=== PATIENT | male | born 1975 | race Caucasian/White ===

== ENCOUNTER 2024-07-01 23:08 | Emergency (ER) | payer MEDICAID, SELFPAY ==
--- NOTE | ~2024-07-01 | XR_ITS ---
EXAMINATION: XR CHEST CLINICAL INFORMATION: Cough and shortness of breath COMPARISON: None available. TECHNIQUE: 2 views of the chest were obtained. FINDINGS: The heart and pulmonary vessels appear normal. The lungs are well inflated. No pleural effusions are present. There may be some mild atelectasis at the lung bases but no gross consolidation is seen. No lung masses. XR/XR chest 2V IMPRESSION: No acute intrathoracic disease. Electronically signed by: Da Ramírez MD 07/02/2024 12:59 AM EDT
[2024-07-01 23:12] VITALS: BP 120/75; BP 144/91; PULSE 106; PULSE 89; RESP 16; TEMP 37.2; O2SAT 99; BMI 25.7
--- NOTE | 2024-07-01 23:49 | ED_ITS ---
HPI - General Adult General Chief complaint: Dyspnea Stated complaint: asthma exacerbation Time Seen by Provider: 07/01/24 23:23 Source: patient and EMS Mode of arrival: EMS Limitations: no limitations History of Present Illness HPI narrative: Patient is a 49-year-old male with reported past medical history of schizoaffective disorder and asthma. He states that for the past few weeks he has been having a productive cough with yellow phlegm, no fevers or chills, reports that he was experiencing shortness of breath throughout today. Most notably after he was walking [place] He is concerned he is having an asthma exacerbation. Unfortunately he does not have an albuterol inhaler, he has not been taking any maintenance asthma medications. Continues to smoke cigarettes and has no interest in cessation at this time. He reports that he previously resided in [place], he has a bad family dynamics, and states he is ?too well known to the [facility]?, so he moved to the [facility] and hopes to start fresh. Reports approximately 1 month ago he was at a and respite home, was discharged for ?being gone too long when I went to get cigarettes?. He has not taken his medications since then, can not recall the name of the medications he was previously taking. He denies suicidal or homicidal ideations. He denies recreational drug or alcohol usage. He is currently homeless. Related Data Home Medications ?Medication ?Instructions ?Recorded ?Confirmed albuterol sulfate 90 mcg/actuation 1 puff inhalation QID PRN wheezing 07/01/24 07/01/24 aerosol inhaler (Ventolin HFA) fluticasone furoate 100 1 ea inhalation DAILY 07/01/24 07/01/24 mcg-vilanterol 25 mcg/dose inhalation powder (Breo Ellipta) Allergies Allergy/AdvReac Type Severity Reaction Status Date / Time risperidone Allergy Anaphylaxis Verified 07/01/24 23:24 Review of Systems 2 Review of Systems: Yes all other systems are reviewed and are negative PMFSH Past Medical History Attestation statement: The following information was validated with the patient. Source: old records reviewed Social History Social History Smoked in Last 30 Days: Yes Use of substances other than those prescribed or required for medical reasons: No Advance Directives: No Advance Directives Information Provided: Yes Do you have a plan to hurt others: No Plan Physical Exam ED Vital Signs: Vital Signs - 24 hr 07/01/24 23:12 07/02/24 00:00 Temperature 99.0 F 99.0 F Pulse Rate 89 78 Respiratory Rate 16 16 Blood Pressure 120/75 118/78 Pulse Oximetry 99 99 BMI result Body Mass Index 25.7 Appearance: Alert.?Oriented to person, place and time. No acute distress.?Normal affect. Eyes: Pupils equal, round and reactive to light.? ENT: Pharynx normal.?? Neck: Normal inspection.? Neck supple.?? CVS: Heart sounds normal. Normal heart rate and rhythm.? Pulses normal.?? Respiratory: No respiratory distress.? Lung sounds mild inspiratory wheezing, audible cough Abdomen: Soft and non-tender. Normoactive bowel sounds. Skin: Skin warm and dry.? Normal skin color.? Extremities: No lower extremity edema.? Neuro: Moves all extremities spontaneously. Sensation intact bilaterally. CN II- XII intact. No focal neuro deficits. Ambulates with normal steady gait. Medications Administered Generic Name Dose Route Start Last Admin Trade Name Freq PRN Reason Stop Dose Admin Guaifenesin/Codeine Phosphate 10 ml 07/02/24 00:01 07/02/24 00:27 Guaifen/Codeine Sf 200/20/10ml 10 Ml Liquid PO 10 ml Q4H PRN Administration Cough Discontinued Medications Generic Name Dose Route Start Last Admin Trade Name Freq PRN Reason Stop Dose Admin Albuterol Sulfate 2 puff 07/01/24 23:47 07/02/24 00:13 Albuterol Sulfate 90 Mcg 8 Gm Inhaler INHALE 07/01/24 23:48 2 puff ONCE ONE Administration Prednisone 40 mg 07/01/24 23:47 07/02/24 00:13 Prednisone 20 Mg Tablet PO 07/01/24 23:48 40 mg ONCE ONE Administration Medical Decision Making Medical Decision Making [facility] Narrative: Patient is a 49-year-old male with past medical history of asthma schizoaffective disorder presenting to emergency department concern for mild asthma exacerbation by his account with productive cough, shortness of breath. No acute respiratory distress no hypoxia, given duration of symptoms to obtain CXR to exclude pneumonia, in addition to viral serologies, he is afebrile without tachycardic, do not suspect sepsis at this time. He is requesting stabilization with medications for schizoaffective disorder but he has been off of for a few weeks, does not recall which medications. He is currently without suicidal or homicidal ideations. He is calm and cooperative. Will administer inhaler in the emergency department in addition to prednisone. Will refer to care team for further evaluation and safe disposition planning. Differential Diagnosis Differential Diagnoses: The differential diagnosis associated with the presentation includes (See narrative above) Admission/Observation Consideration of admission/observation: Escalation of care including admission/observation considered Patient is being observed in the Emergency Department for depression and anxiety. Observation time was started at 00:01 on 07/02/2024.?The patient is currently stable and non-toxic appearing. Observation is being initiated in the Emergency Department to allow time to help differentiate if the patient's depression and anxiety is due to Substance Induced Mood Disorder and Anxiety versus Major Depressive Disorder, Bipolar [place], Bipolar Depression, and Schizophrenia. The patient will receive frequent psychiatric assessments from the provider as well as from nursing staff. The patient will also be monitored for the need of PRN agitation medications such as Haldol, Ativan, and Benadryl. Consult Healthcare Provider Management of the patient was discussed with: Behavioral Health Provider Lab Data [facility] Lab Attestation statement: I reviewed the patient's lab results. CBC revealing mild leukocytosis 12.6 no anemia. No electrolyte derangement. No [place]. Alcohol level nondetectable. Viral serologies are negative. 07/02/24 00:12 07/02/24 00:12 Labs: Lab Results 07/02/24 Range/Units 00:12 WBC 12.6 H (4.8-10.8) X10*3/uL RBC 5.86 H (4.60-5.80) X10*6/uL Hgb 17.4 (14.0-18.0) g/dl Hct 49.6 (42.0-52.0) % MCV 84.6 (80.0-98.0) fL MCH 29.7 (27.0-33.0) pg MCHC 35.1 (31.0-36.0) g/dl RDW 12.2 (11.0-16.0) % Plt Count 285 (160-400) X10*3/uL MPV 9.9 (9.4-12.4) fL Immature Gran % (Auto) 0.3 (0.0-0.4) % Neut % (Auto) 70.1 (45-73) % Lymph % (Auto) 21.0 (20-40) % Cross % (Auto) 7.8 (2-11) % Eos % (Auto) 0.5 (0-4) % Baso % (Auto) 0.3 (0-2) % Lymph # (Auto) 2.7 (1.2-4.9) X10*3/uL Cross # (Auto) 1.0 (0.1-1.2) X10*3/uL Eos # (Auto) 0.1 (0.0-0.4) X10*3/uL Baso # (Auto) 0.0 (0.0-0.2) X10*3/uL Abs Immat Gran (auto) 0.04 H (0.00-0.03) X10*3/uL Absolute Neuts (auto) 8.9 H (2.0-8.3) x10*3/uL Absolute Nucleated RBC 0.000 (0.0-0.012) X10*3/uL Nucleated RBC % (auto) 0.0 (0.0-0.2) /100WBC Sodium 135 (135-145) mmol/L Potassium 3.9 (3.3-5.1) mmol/L Chloride 97 (96-108) mmol/L Carbon Dioxide 25 (22-29) mmol/L Anion Gap 17 (12-20) BUN 6 L (9-16) mg/dL Creatinine 0.83 (0.5-1.4) mg/dL Estim Creat Clear Calc 92.1 Estimated GFR > 60 Random Glucose 108 (60-115) mg/dL Calcium 10.2 (8.4-10.2) mg/dL Ethyl Alcohol < 10 mg/dL Influenza Type A (PCR) NEGATIVE (Negative) Influenza Type B (PCR) NEGATIVE (Negative) RSV RNA Qual (PCR) NEGATIVE (Negative) SARS-CoV-2 RNA (RT-PCR) NEGATIVE (Negative) Independent Interpretation I performed an independent interpretation of an: Plain X-Ray (No consolidation or infiltrate) Radiology Impression Discussion of test interpretation with radiology: I have reviewed the radiologist's reading. Radiologist Impression: XR/XR chest 2V IMPRESSION: No acute intrathoracic disease. Independent Historian Clinical information obtained from an independent historian. History obtained from or confirmed by: EMS Chronic Conditions Patient?s care impacted by: Other (Asthma, schizoaffective disorder) Social Determinants Patient?s care significantly limited by Social Determinants of Health including: Inadequate housing Discharge Plan Discharge Clinical Impression: Asthma with exacerbation, Schizoaffective disorder Patient Disposition: Still a Patient Prescriptions: No Action albuterol sulfate [Ventolin HFA] 90 mcg/actuation HFA aerosol inhaler 1 puff INHALATION QID PRN (Reason: wheezing) fluticasone furoate-vilanterol [Breo Ellipta] 100-25 mcg/dose blister with device 1 ea INHALATION DAILY Print Language: Romansh
[2024-07-02] VITALS: BP 118/78; PULSE 78; RESP 16; TEMP 37.2; O2SAT 99
[2024-07-02] MEDS: predniSONE 20 MG TABLET 40 MG PO (00:13)
[2024-07-02] MEDS: Albuterol Sulfate 90 MCG 8 GM INHALER 2 PUFF INHALE (00:13)
[2024-07-02 00:18] LABS: Basophils Percent Auto 0.3 % (0-2); Eosinophils Absolute Auto 0.1 X10*3/uL (0.0-0.4); Eosinophils Percent Auto 0.5 % (0-4); Hematocrit 49.6 % (42.0-52.0); Hemoglobin 17.4 g/dl (14.0-18.0); Imm Gran Abs Auto 0.04 X10*3/uL (0.00-0.03); Imm Gran Pct Auto 0.3 % (0.0-0.4); Lymphocytes Absolute Auto 2.7 X10*3/uL (1.2-4.9); MANUAL DIFF FLAG NO; Mean Corpuscular HGB Conc 35.1 g/dl (31.0-36.0); Mean Corpuscular Hemoglobin 29.7 pg (27.0-33.0); Mean Corpuscular Volume 84.6 fL (80.0-98.0); Mean Platelet Volume 9.9 fL (9.4-12.4); Monocytes Percent Auto 7.8 % (2-11); Neutrophils Absolute Auto 8.9 x10*3/uL (2.0-8.3); Neutrophils Percent Auto 70.1 % (45-73); Platelet Count 285 X10*3/uL (160-400); Red Blood Count 5.86 X10*6/uL (4.60-5.80); Red Cell Distribution Width 12.2 % (11.0-16.0); White Blood Count 12.6 X10*3/uL (4.8-10.8)
[2024-07-02] MEDS: guaiFEN/Codeine SF 200/20/10ML 10 ML LIQUID PO (00:27)
[2024-07-02 00:36] LABS: Anion Gap 17 (12-20); Blood Urea Nitrogen 6 mg/dL (9-16); Calcium 10.2 mg/dL (8.4-10.2); Carbon Dioxide 25 mmol/L (22-29); Chloride 97 mmol/L (96-108); Creatinine Clr Calc Pharmacy 92.1; Estimated Glomerular Filt Rate > 60; Ethanol < 10 mg/dL; Glucose Random 108 mg/dL (60-115); Potassium 3.9 mmol/L (3.3-5.1); Sodium 135 mmol/L (135-145)
[2024-07-02 01:21] LABS: Influenza A PCR NEGATIVE (Negative); Influenza B PCR NEGATIVE (Negative); Resp Syncy Virus RNA Qual PCR NEGATIVE (Negative); SARS COV2 PCR INHOUSE NEGATIVE (Negative)
[2024-07-02 06:10] VITALS: BP 133/72; PULSE 93; RESP 16; TEMP 36.9; O2SAT 96
--- NOTE | 2024-07-02 06:29 | PC.NURSE ---
pt changed over by security due to desired consultation by CARE team. Pt continues to deny SI/HI at this time.
[2024-07-02 07:35] VITALS: BP 121/65; PULSE 82; RESP 16; TEMP 36.8; O2SAT 96
[2024-07-02 08:10] LABS: Amphetamine Screen Urine Not Detected (Not Detect); Barbiturates, Urine Not Detected (Not Detect); Benzodiazepines Screen Urine Not Detected (Not Detect); Buprenorphine Scr Not Detected (Not Detect); Cannabinoid Screen Urine Not Detected (Not Detect); Cocaine Screen Urine Not Detected (Not Detect); Fentanyl, urine Not Detected (Not Detect); Methadone Screen, Urine Not Detected (Not Detect); Opiate Screen Urine POSITIVE (Not Detect); Oxycodone Screen Urine Not Detected (Not Detect); Phencyclidine Screen Urine Not Detected (Not Detect)
--- NOTE | 2024-07-02 08:24 | PC.NURSE ---
pt informed this RN that he wanted to leave because he has been here all night and has things to do. explained to pt that he just gave a urine and he is pending a CARE team eval to help with his medications. pt stated I have things to do, I would like to leave .
[2024-07-02 08:30] VITALS: BP 121/65; PULSE 82; RESP 16; TEMP 36.8; O2SAT 96
--- NOTE | 2024-07-02 08:44 | PC.NURSE ---
care team at bedside talking with pt
--- NOTE | 2024-07-02 10:07 | MHC.CARE ---
Pt does not meet the criteria for IPLOC and does not present as an imminent risk at this time. He declined referrals for any services and requested to be discharged which the provider was in agreement with.
== END 2024-07-02 09:45 | disposition home or self-care (01) ==
PROVIDERS: Nurse Practitioner Family; Emergency Provider Emergency Medicine
DX: J45.901 Unspecified asthma with (acute) exacerbation (principal); R06.00 Dyspnea, unspecified; F25.9 Schizoaffective disorder, unspecified; Z51.81 Encounter for therapeutic drug level monitoring; Z79.899 Other long term (current) drug therapy; Z03.818 Encounter for observation for suspected exposure to other biological agents ruled out
CPT/HCPCS: 0241U; 36415; 71046; 80048; 80307; 85025; 99284; S9485